=== PATIENT | male | born 1960 | race Caucasian/White ===

== ENCOUNTER → 2016-09-14 | Day surgery (SDC) | payer OTHER ==
[~2016-09-14] VITALS: Ht 177.8 cm; Wt 105.1 kg
[~2016-09-14] MED LIST: *ONDANSETRON 4 MG VIAL PERIprocedural Use ONLY ONE; AMLO5TAB2 PO; ASPI81CH PO; ATOR40TA16 PO; BETH10TA2 PO; BUME1TAB PO; BUPIVACAINE/EPINEPHRINE 0.25% PF 30 ML VIAL ONE; BUPIVACAINE/EPINEPHRINE 0.5% PF 30 ML VIAL ONE; CALC667C PO; CITA20TA4 PO; DO NOT ADM ANY ANTICOAGULANT DRUGS XX PRN; FAMOTIDINE 20 MG/2 ML VIAL ONE; GABA800T PO; HEPARIN SODIUM - SQ 10,000 UNITS/ML VIAL ONE; HYDR-3533 PO; HYDR25TA35 PO; INSULIN HUMAN REGULAR 1,000 UNITS/10 ML VIAL SQ PRN; IPRASOL INH; ISOS20TA PO; LACTATED RINGER'S 1000 ML IV SCH; LORA-373 PO; METO25TA3 PO; METOPROLOL TARTRATE 25 MG TAB PO PRN; MIDAZOLAM HCL 2 MG/2 ML VIAL ONE; MULT-135 PO; NEOSTIGMINE 3 MG/3 ML SYR IV ONE; NOVOINJ6 SQ; NOVORP2 SQ; ONDANSETRON HCL 4 MG/2 ML VIAL IV PUSH ONE; ONDANSETRON HCL 4 MG/2 ML VIAL IV PUSH PRN; PANT40TA3 PO; PROPOFOL 200 MG/20 ML AMP IV ONE; SODIUM CHLORID 0.9% 500 ML IV SCH; VENTAER INH; VITA100036 PO; ZENP1000 PO; ZOFR4TAB PO; ZYRT10CA PO; ceFAZolin 1,000 MG/NS 100 ML IV SCH; fentaNYL CITRATE 250 MCG/5 ML AMP ONE; hydrALAZINE HCL 20 MG/ML VIAL ONE; oxyCODONE/ACETAMINOPHEN 10 MG/325 MG TAB PO PRN; oxyCODONE/ACETAMINOPHEN 5 MG/325 MG TAB ONE
[2016-09-14 09:24] VITALS: BP 163/81; PULSE 66; RESP 20; TEMP 98.2; O2SAT 100
[2016-09-14 09:55] LABS: BASOPHIL % 0.5 % (0.0-2.0); EOSINOPHIL # 0.4 TH/MM3 (0-0.4); EOSINOPHIL % 5.4 % (0.0-4.0); HEMATOCRIT 34.4 % (39.0-51.0); HEMO FLAGS DIFF FINAL; LYMPH % 12.2 % (9.0-44.0); LYMPHOCYTE # 0.8 TH/MM3 (1.0-4.8); MEAN CELL VOLUME 88.8 FL (80.0-100.0); MEAN CORPUSCULAR HEMOGLOBIN 30.8 PG (27.0-34.0); MEAN CORPUSCULAR HGB CONC 34.7 % (32.0-36.0); NEUT % 74.9 % (16.0-70.0); PLATELET COUNT 207 TH/MM3 (150-450); RED BLOOD COUNT 3.87 MIL/MM3 (4.50-5.90); RED CELL DISTRIBUTION WIDTH 15.7 % (11.6-17.2); WHITE BLOOD COUNT 6.6 TH/MM3 (4.0-11.0)
[2016-09-14 10:14] LABS: BICARBONATE 28.3 MEQ/L (21.0-32.0); POTASSIUM 4.2 MEQ/L (3.5-5.1)
[2016-09-14 16:00] VITALS: BP 138/80; PULSE 62; RESP 16; TEMP 97.5; O2SAT 97
--- NOTE | 2016-09-16 06:32 | MP ---
cc: GREGORIO RUEDA M.D. DATE OF SURGERY September 14, 2016 PREOPERATIVE DIAGNOSES 1. Chronic kidney disease. 2. Diffusely strictured left brachiocephalic A-V fistula. POSTOPERATIVE DIAGNOSES 1. Chronic kidney disease. 2. Diffusely strictured left brachiocephalic A-V fistula. OPERATIVE PROCEDURE 1. PTFE interposition revision left brachiocephalic A-V fistula. 2. Laparoscopic-assisted peritoneal dialysis catheter placement. SURGEON Gregorio Rueda MD [employer] BRIGID Pacheco ANESTHESIA General/local. DESCRIPTION OF THE OPERATIVE PROCEDURE With the patient in the supine position and under general anesthesia, the left arm, axilla and abdomen were prepped with Betadine and draped in a sterile fashion. One gram of Ancef was administered intravenously and following a protocol time-out, skin and subcutaneous tissue over the proposed incisional areas within the left arm preemptively infiltrated with 0.5% Marcaine with epinephrine. A curvilinear approximately 3 cm incision was performed directly overlying the arterialized cephalic vein proximal to the brachial artery anastomosis. The arterialized cephalic vein was circumferentially mobilized. As suggested by preoperative color-flow ultrasound, the 3-4 cm segment of cephalic vein immediately proximal to the brachial artery anastomosis was well matured, measured approximately 5 mm and diameter throughout. However, the proximal cephalic vein was diffusely strictured with concentric fibrosis throughout, as far as far proximally as could be mobilized within the incision. Thus salvage of the more proximal fistula by endovascular or patch angioplasty means was not possible. A vertical incision was performed directly overlying the brachial vein distal to the axilla. The vein was circumferentially mobilized. The brachial vein was occluded proximally and distally with Yasargil clips. A vertical 2-cm venotomy was performed along the anterolateral surface. The proximal vein was flushed with heparinized saline. A 6-mm CenterFlex PTFE graft was spatulated on end and anastomosed end-to-side to the venotomy with continuous 6-0 Prolene. The graft was tunneled in a crescent-shaped fashion along the medial aspect of the upper extremity with a tunneling device. The matured arterialized cephalic vein segment was occluded proximally with Yasargil clip, transected and anastomosed end-to-end to the PTFE graft with continuous 6-0 Prolene. The occluding Yasargil clips were removed establishing pulsatile flow within the revised access as confirmed by Doppler signal. Both incisions were closed with two separate deep layers of continuous 4-0 Monocryl and skin reapproximated with continuous subcuticular 5-0 Monocryl. Steri-Strips and sterile dressing applied. Attention was then directed to laparoscopic-assisted peritoneal dialysis catheter placement. The skin and subcutaneous tissue along the left lateral infracostal area was infiltrated with 0.5% Marcaine with epinephrine. A transverse 2-cm incision was performed. The incision was deepened through the anterior rectus sheath. Rectus muscle fibers were . The posterior rectus sheath and peritoneum were elevated and a small peritoneotomy performed through which a 5-mm Surgiport was bluntly advanced into the peritoneal space. The abdomen was insufflated with carbon dioxide. Laparoscopy revealed no significant intraabdominal adhesions or obvious pathology. A separate 2-cm incision was performed immediately to the left and inferior to the umbilicus and deepened through the anterior rectus sheath. An 18-gauge needle was guided obliquely and caudally between the anterior and posterior rectus sheaths and under laparoscopic visualization, punctured through the posterior rectus sheath and peritoneum. A J-wire was advanced into the mid-pelvis. The needle was exchanged for a catheter insertion sheath. A coiled peritoneal dialysis catheter was guided into the mid-pelvis. The internal catheter cuff was placed subjacent to the rectus sheathotomy which was secured around the cuff with interrupted 0-PDS. The catheter was tunneled subcutaneously and exited through a separate stab incision superolaterally. The titanium adapter was applied to the TRAM catheter tip and the catheter flushed with saline. The abdomen was desufflated. The left subcostal rectus incision was secured with continuous 4-0 Monocryl. Both skin incisions were closed with continuous subcuticular 5-0 Monocryl, reinforced with Steri-Strips and covered with sterile gauze. Instrument, needle and sponge count correct x 2. No operative complications. The patient returned to the recovery room in stable condition having tolerated the procedure well. Gregorio Rueda MD JTS/SSB /4:20 PM /6:17 AM
== END | disposition home or self-care (01) ==
LOC: HSDC 08:34
PROVIDERS: ATTEND Surgery Vascular Surgery
DX: T82.858A Stenosis of other vascular prosthetic devices, implants and grafts, initial encounter (principal); I87.1 Compression of vein; I13.0 Hypertensive heart and chronic kidney disease with heart failure and stage 1 through stage 4 chronic kidney disease, or unspecified chronic kidney disease; I50.9 Heart failure, unspecified; E11.40 Type 2 diabetes mellitus with diabetic neuropathy, unspecified; Z79.4 Long term (current) use of insulin
CPT/HCPCS: 01844; 36832; 49324; 80048; 82948; 85025; C1750; C1768; J0360; J0690; J1644; J1815; J2250; J2405; J2710; J3010; J7120

== ENCOUNTER → 2016-10-25 | Day surgery (SDC) | payer OTHER ==
[~2016-10-25] VITALS: Ht 177.8 cm; Wt 104.3 kg
[~2016-10-25] MED LIST changes: +*morphine SULFATE 8 MG/ML PERIprocedure ONLY ONE; +ACETAMINOPHEN/HYDROcodone 325 MG/7.5 MG TAB ONE; +BUPIVACAINE/EPINEPHRINE 0.25% PF 10 ML VIAL ONE; -BUPIVACAINE/EPINEPHRINE 0.25% PF 30 ML VIAL ONE; -DO NOT ADM ANY ANTICOAGULANT DRUGS XX PRN; +HEPARIN SODIUM - IV 10,000 UNITS/10 ML VIAL ONE; -HEPARIN SODIUM - SQ 10,000 UNITS/ML VIAL ONE; +Hemodialysis Vas Acc Cath PRN Heparin 1000 unit/ml Flush IV FLUSH; +Hemodialysis Vas Access Cath PRN NS Lock Flush IVF; +Infusaport/Implanted VAD PRN NS Lock Flush IVF; -NEOSTIGMINE 3 MG/3 ML SYR IV ONE; -ONDANSETRON HCL 4 MG/2 ML VIAL IV PUSH ONE; -ONDANSETRON HCL 4 MG/2 ML VIAL IV PUSH PRN; +SODIUM CHLOR 0.9% 1000 ML INJ 1,000 ML IV ONE; +SODIUM CHLOR 0.9% 250 ML INJ 250 ML ONE; +VANCOMYCIN HCL 1000 MG ON-CALL/NS 250 ML IV SCH; +VANCOMYCIN HCL 1000 MG VIAL ONE; -fentaNYL CITRATE 250 MCG/5 ML AMP ONE; -hydrALAZINE HCL 20 MG/ML VIAL ONE; -oxyCODONE/ACETAMINOPHEN 10 MG/325 MG TAB PO PRN; -oxyCODONE/ACETAMINOPHEN 5 MG/325 MG TAB ONE
[2016-10-25 13:18] VITALS: BP 144/71; PULSE 75; RESP 16; TEMP 98.1; O2SAT 100
[2016-10-25 13:43] LABS: AUTOMATED NEUTROPHIL # 5.8 TH/MM3 (1.8-7.7); BASOPHIL % 0.3 % (0.0-2.0); EOSINOPHIL # 0.2 TH/MM3 (0-0.4); EOSINOPHIL % 2.2 % (0.0-4.0); HEMATOCRIT 32.6 % (39.0-51.0); HEMO FLAGS DIFF FINAL; LYMPH % 11.5 % (9.0-44.0); LYMPHOCYTE # 0.9 TH/MM3 (1.0-4.8); MEAN CELL VOLUME 89.8 FL (80.0-100.0); MEAN CORPUSCULAR HEMOGLOBIN 30.5 PG (27.0-34.0); MONO % 9.4 % (0.0-8.0); NEUT % 76.6 % (16.0-70.0); PLATELET COUNT 186 TH/MM3 (150-450); RED BLOOD COUNT 3.63 MIL/MM3 (4.50-5.90); RED CELL DISTRIBUTION WIDTH 16.8 % (11.6-17.2); WHITE BLOOD COUNT 7.6 TH/MM3 (4.0-11.0)
[2016-10-25 13:57] LABS: BICARBONATE 24.2 MEQ/L (21.0-32.0); POTASSIUM 3.7 MEQ/L (3.5-5.1)
[2016-10-25 17:20] VITALS: BP 121/64; PULSE 68; RESP 16; TEMP 97.6; O2SAT 99
--- NOTE | 2016-10-28 17:15 | MP ---
cc: GREGORIO RUEDA DATE OF SURGERY 10/25/16 PREOPERATIVE DIAGNOSIS Chronic kidney disease with need for permanent peritoneal dialysis access. POSTOPERATIVE DIAGNOSIS Chronic kidney disease with need for permanent peritoneal dialysis access. PROCEDURE Laparoscopic-assisted peritoneal dialysis catheter placement. SURGEON Rodolfo Rueda MD [employer] Donna Caballero CFA ANESTHESIA General/local PROCEDURE IN DETAIL With the patient in the supine position, general endotracheal anesthesia was induced, the abdomen thoroughly prepped with Betadine and draped in a sterile fashion. One gram of Ancef and 1 gram of vancomycin were administered intravenously. Following a protocol time-out, the skin and subcutaneous tissue along the proposed incisional areas is preemptively infiltrated with 0.5% Marcaine with epinephrine. A transverse 2 cm incision was performed along the right medial infracostal region. The incision was deepened through the anterior rectus fascia. Rectus muscle fibers were , posterior rectus sheath and peritoneum elevated and a small sheathotomy/peritoneotomy performed through which a 5 mm Surgiport was bluntly advanced into the peritoneal space. The abdomen was insufflated with carbon dioxide. Laparoscopic visualization of the intraperitoneal space revealed scattered adhesions between visceral and parietal peritoneal surfaces, particularly along the left lateral and pelvic regions, probably related to previous peritoneal dialysis catheter placement/subsequent infection. However, a clear area was apparent along the right paracolic gutter in the right pelvic cul-de-sac. A transverse 2 cm incision was performed immediately lateral and inferior to the umbilicus, deepened through the anterior rectus sheath. An 18 gauge needle was guided obliquely and caudally between the anterior and posterior rectus sheath and, under laparoscopic visualization, punctured through the posterior rectus sheath and guided toward the mid pelvis. A J-wire was advanced into the mid, dependent pelvic cul-de-sac. The needle was exchanged for a catheter insertion sheath. A coiled peritoneal dialysis catheter was introduced through the tear away introducer sheath and the coil positioned within the mid pelvis, deepened at most area. The internal catheter cuff was placed subjacent to the rectus sheathotomy which was secured with interrupted 2-0 PDS. The subcutaneous portion of the catheter was tunneled and exited through a separate stab incision laterally. The catheter was trimmed to appropriate length, the titanium adapter applied to the catheter tip. The catheter was flushed with saline and capped. The abdomen was desufflated. The right subcostal rectus incision was closed with interrupted 2-0 PDS. Both skin incisions were reapproximated with continuous subcuticular 5-0 Monocryl, reinforced with Steri-Strips. The catheter exit site was dressed with gauze and Tegaderm. Instrument, needle, sponge count correct x2. No operative complications. The patient returned to the recovery room in stable condition having tolerated procedure well. MD TRESSA Drake/ /7:41 AM /5:05 PM
== END | disposition home or self-care (01) ==
LOC: HSDC 12:15
PROVIDERS: ATTEND Surgery Vascular Surgery
DX: N18.6 End stage renal disease (principal); I12.0 Hypertensive chronic kidney disease with stage 5 chronic kidney disease or end stage renal disease; J44.9 Chronic obstructive pulmonary disease, unspecified; I73.9 Peripheral vascular disease, unspecified; Z95.1 Presence of aortocoronary bypass graft
CPT/HCPCS: 00790; 49324; 80048; 85025; C1750; J1644; J2250; J2270; J2405; J3010; J3370; J7030; J7050

== ENCOUNTER 2018-01-14 22:37 | Inpatient (IN) | payer OTHER, MEDICARE ==
[~2018-01-14] VITALS: Ht 177.8 cm; Wt 127.8 kg
[~2018-01-14 22:37] MED LIST changes: -*ONDANSETRON 4 MG VIAL PERIprocedural Use ONLY ONE; -*morphine SULFATE 8 MG/ML PERIprocedure ONLY ONE; -ACETAMINOPHEN/HYDROcodone 325 MG/7.5 MG TAB ONE; +ASPI-516 PO; -ASPI81CH PO; -BUPIVACAINE/EPINEPHRINE 0.25% PF 10 ML VIAL ONE; -BUPIVACAINE/EPINEPHRINE 0.5% PF 30 ML VIAL ONE; +CHOL10008 PO; -FAMOTIDINE 20 MG/2 ML VIAL ONE; -HEPARIN SODIUM - IV 10,000 UNITS/10 ML VIAL ONE; -Hemodialysis Vas Acc Cath PRN Heparin 1000 unit/ml Flush IV FLUSH; -Hemodialysis Vas Access Cath PRN NS Lock Flush IVF; -INSULIN HUMAN REGULAR 1,000 UNITS/10 ML VIAL SQ PRN; -Infusaport/Implanted VAD PRN NS Lock Flush IVF; -LACTATED RINGER'S 1000 ML IV SCH; -LORA-373 PO; +LORA0.5T PO; -METOPROLOL TARTRATE 25 MG TAB PO PRN; -MIDAZOLAM HCL 2 MG/2 ML VIAL ONE; -PROPOFOL 200 MG/20 ML AMP IV ONE; -SODIUM CHLOR 0.9% 1000 ML INJ 1,000 ML IV ONE; -SODIUM CHLOR 0.9% 250 ML INJ 250 ML ONE; -SODIUM CHLORID 0.9% 500 ML IV SCH; -VANCOMYCIN HCL 1000 MG ON-CALL/NS 250 ML IV SCH; -VANCOMYCIN HCL 1000 MG VIAL ONE; -VITA100036 PO; -ceFAZolin 1,000 MG/NS 100 ML IV SCH
[2018-01-14 23:16] VITALS: BP 194/84; PULSE 77; RESP 16; TEMP 98.2; O2SAT 98
[2018-01-14] MEDS ORDERED: MORPHINE SULFATE 4 MG/ML INJ IV PUSH ONE (23:30)
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
[2018-01-15] VITALS (12 sets, daily range): BP systolic 104–188; BP diastolic 54–86; PULSE 61–77; RESP 11–22; TEMP 97.4–98.7; O2SAT 93–97
[2018-01-15] MEDS ORDERED: SODIUM CHLORIDE 0.9% FLUSH 10 ML FLUSH IV FLUSH PRN ×2 (00:15→08:30)
[2018-01-15] MEDS ORDERED: ACETAMINOPHEN/HYDROcodone 325 MG/5 MG TAB PO PRN (00:15)
[2018-01-15] MEDS ORDERED: GLUCAGON 1 MG/ML VIAL OTHER PRN (00:15)
[2018-01-15] MEDS ORDERED: LORazepam 0.5 MG TAB PO PRN (00:15)
[2018-01-15] MEDS ORDERED: DEXTROSE 50% IN WATER 50 ML VIAL(D50) IV PUSH PRN (00:15)
[2018-01-15] MEDS ORDERED: CHLORHEXIDINE GLUCONATE 2 % 1 PACK (2 CLOTHS) TOP PRN (00:15)
[2018-01-15] MEDS ORDERED: NURSING INFORMATION XX SCH (00:15)
[2018-01-15] MEDS ORDERED: ONDANSETRON ODT 4 MG TAB PO PRN (00:30)
[2018-01-15] MEDS: MORPHINE SULFATE 4 MG/ML INJ IV PUSH PRN ×7 (01:59→17:16)
[2018-01-15] MEDS: ALBUTEROL SULFATE 90 MCG/ACT HFA 8 GM INHALER INH SCH ×2 (02:05→04:51)
[2018-01-15] MEDS ORDERED: CHLORHEXIDINE GLUCONATE 2 % 1 PACK (2 CLOTHS) TOP SCH (04:00)
[2018-01-15] MEDS ORDERED: hydrALAZINE HCL 25 MG TAB PO SCH (06:00)
[2018-01-15] MEDS ORDERED: BISACODYL 10 MG SUPP RECTAL PRN (07:45)
[2018-01-15] MEDS ORDERED: SENNOSIDES 8.6 MG TAB PO PRN (07:45)
[2018-01-15] MEDS ORDERED: LACTULOSE SYRUP 20 GM/30 ML CUP PO PRN (07:45)
[2018-01-15] MEDS: INSULIN NovoLIN REGULAR SUPPLEMENTAL SCALE SQ SCH ×4 (08:00→21:00)
[2018-01-15] MEDS: MAGNESIUM HYDROXIDE SUSP 30 ML CUP PO SCH ×2 (08:00→20:32)
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
[2018-01-15] MEDS ORDERED: HEPARIN SODIUM - IV 10,000 UNITS/10 ML VIAL XX PRN (08:30)
[2018-01-15] MEDS ORDERED: GABAPENTIN 400 MG CAP PO SCH (09:00)
[2018-01-15] MEDS ORDERED: ISOSORBIDE MONONITRATE 20 MG TAB PO SCH (09:00)
[2018-01-15] MEDS ORDERED: METOPROLOL TARTRATE 25 MG TAB PO SCH (09:00)
[2018-01-15] MEDS ORDERED: CITALOPRAM HYDROBROMIDE 20 MG TAB PO SCH (09:00)
[2018-01-15] MEDS ORDERED: BETHANECHOL CHL 10 MG TAB PO SCH (09:00)
[2018-01-15] MEDS ORDERED: BUMETANIDE 1 MG TAB PO SCH (09:00)
[2018-01-15] MEDS: amLODIPine BESYLATE 5 MG TAB PO SCH (09:13)
[2018-01-15] MEDS: ATORVASTATIN 40 MG TAB PO SCH (09:14)
[2018-01-15] MEDS: DOCUSATE SODIUM 50 MG/SENNA 8.6 MG TAB PO SCH ×2 (09:14→20:33)
[2018-01-15] MEDS: ASPIRIN 81 MG CHEW TAB PO SCH (09:14)
[2018-01-15] MEDS: PANTOPRAZOLE SOD 40 MG DELAYED RELEASE TAB PO SCH (09:14)
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
[2018-01-15] MEDS: ACETAMINOPHEN/HYDROcodone 325 MG/5 MG TAB PO PRN ×3 (10:14→20:33)
[2018-01-15] MEDS: LIPASE/PROTEASE/AMYLASE (12,000/38,000/60,000) CAP PO SCH ×3 (10:14→17:45)
[2018-01-15] MEDS ORDERED: predniSONE 10 MG TAB PO ONE (11:00)
[2018-01-15] MEDS: RESP: ALBUTEROL 2.5 MG/IPRATROPIUM 0.5 MG NEB (SCH) NEB ×3 (11:09→20:10)
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
[2018-01-15] MEDS: CALCIUM ACETATE 667 MG CAP PO SCH ×2 (12:22→17:16)
[2018-01-15 13:08] LABS: AUTOMATED NEUTROPHIL # 10.3 TH/MM3 (1.8-7.7); BASOPHIL % 0.3 % (0.0-2.0); EOSINOPHIL # 0.1 TH/MM3 (0-0.4); EOSINOPHIL % 1.1 % (0.0-4.0); HEMATOCRIT 31.2 % (39.0-51.0); LYMPH % 10.6 % (9.0-44.0); LYMPHOCYTE # 1.4 TH/MM3 (1.0-4.8); MEAN CELL VOLUME 95.4 FL (80.0-100.0); MEAN CORPUSCULAR HEMOGLOBIN 30.7 PG (27.0-34.0); MEAN CORPUSCULAR HGB CONC 32.2 % (32.0-36.0); MEAN PLATELET VOLUME 8.9 FL (7.0-11.0); MONO % 7.6 % (0.0-8.0); NEUT % 80.4 % (16.0-70.0); PLATELET COUNT 199 TH/MM3 (150-450); RED BLOOD COUNT 3.27 MIL/MM3 (4.50-5.90); RED CELL DISTRIBUTION WIDTH 15.7 % (11.6-17.2); WHITE BLOOD COUNT 12.9 TH/MM3 (4.0-11.0)
[2018-01-15] MEDS ORDERED: CHLORHEXIDINE GLUCONATE 2 % 1 PACK (2 CLOTHS)(extra cloths) TOPICAL PRN (13:15)
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
[2018-01-15 15:36] LABS: BICARBONATE 22.2 MEQ/L (21.0-32.0); CALCIUM 7.9 MG/DL (8.5-10.1); CREATININE 5.53 MG/DL (0.60-1.30)
[2018-01-15] MEDS: hydrALAZINE HCL 50 MG TAB PO SCH ×2 (15:47→20:33)
[2018-01-15] MEDS: LISINOPRIL 20 MG TAB PO SCH (17:15)
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
[2018-01-15] MEDS: BUDESONIDE-FORMOTEROL 160/4.5 MCG INHALER INH SCH (20:32)
[2018-01-15] MEDS: CARVEDILOL 12.5 MG TAB PO SCH (20:32)
[2018-01-15] MEDS: ISOSORBIDE MONONITRATE 60 MG CR TAB (IMDUR) PO SCH (20:33)
[2018-01-15] MEDS: MUPIROCIN 2% OINT 1 APPLIC/GM SYR NASAL SCH (20:34)
[2018-01-15] MEDS: RANOLAZINE 500 MG EXTENDED RELEASE TAB PO SCH (21:00)
[2018-01-15 22:00] LABS: TROPONIN I 0.47 NG/ML (0.02-0.05)
[2018-01-16] VITALS (12 sets, daily range): BP systolic 106–150; BP diastolic 58–69; PULSE 58–95; RESP 16–26; TEMP 97.8–98.7; O2SAT 93–100
[2018-01-16] MEDS: RESP: ALBUTEROL 2.5 MG/IPRATROPIUM 0.5 MG NEB (SCH) NEB ×7 (01:06→23:22)
[2018-01-16] MEDS: ACETAMINOPHEN/HYDROcodone 325 MG/5 MG TAB PO PRN ×5 (03:49→21:25)
[2018-01-16] MEDS: CHLORHEXIDINE GLUCONATE 2 % 1 PACK (2 CLOTHS)(taper/protocol) TOPICAL SCH (03:51)
--- NOTE | 2018-01-16 04:06 | RADRPT ---
EXAM DATE: 01/16/2018 3:45 AM EDT AGE/SEX: 57 years / Male INDICATIONS: Shortness of breath. Chest pain. CLINICAL DATA: This is the patient's subsequent encounter. Patient reports that signs and symptoms h ave been present for 3 days and indicates a pain score of 6/10. MEDICAL/SURGICAL HISTORY: Hypertension. Cardiovascular disease. Diabetes mellitus type II. R enal failure, chronic. Congestive heart failure. CABG. [place] [facility] [place]. . FINDINGS: Single chest some shows mild scarring left lung base. Sternal wires and clips are CABG. Small lung vo lumes. Upper lungs are clear. CONCLUSION: Scar versus atelectasis left lung base. Right lung is clear. Small lung volumes. Electronically signed by: Ollie Fraga MD 01/16/2018 4:05 AM EDT
[2018-01-16 04:37] LABS: AUTOMATED NEUTROPHIL # 9.4 TH/MM3 (1.8-7.7); BASOPHIL % 0.2 % (0.0-2.0); EOSINOPHIL % 0.3 % (0.0-4.0); HEMATOCRIT 29.8 % (39.0-51.0); HEMOGLOBIN 9.6 GM/DL (13.0-17.0); LYMPH % 6.1 % (9.0-44.0); LYMPHOCYTE # 0.6 TH/MM3 (1.0-4.8); MEAN CELL VOLUME 95.6 FL (80.0-100.0); MEAN CORPUSCULAR HEMOGLOBIN 30.8 PG (27.0-34.0); MEAN CORPUSCULAR HGB CONC 32.2 % (32.0-36.0); MEAN PLATELET VOLUME 8.7 FL (7.0-11.0); MONO % 4.1 % (0.0-8.0); MONOCYTE # 0.4 TH/MM3 (0-0.9); NEUT % 89.3 % (16.0-70.0); PLATELET COUNT 193 TH/MM3 (150-450); RED BLOOD COUNT 3.12 MIL/MM3 (4.50-5.90); RED CELL DISTRIBUTION WIDTH 15.8 % (11.6-17.2); WHITE BLOOD COUNT 10.5 TH/MM3 (4.0-11.0)
[2018-01-16 05:01] LABS: ALBUMIN 2.6 GM/DL (3.4-5.0); AST (GOT) 32 U/L (15-37); BICARBONATE 24.7 MEQ/L (21.0-32.0); BLOOD UREA NITROGEN 84 MG/DL (7-18); CALCIUM 7.5 MG/DL (8.5-10.1); CHLORIDE 106 MEQ/L (98-107); GLOMERULAR FILTRATION RATE 11 ML/MIN (>89); GLUCOSE,RANDOM 236 MG/DL (74-106); SODIUM (NA) 141 MEQ/L (136-145)
[2018-01-16 05:06] LABS: ALKALINE PHOSPHATASE 72 U/L (45-117); ALT (GPT) 48 U/L (12-78); PHOSPHORUS 6.6 MG/DL (2.5-4.9); TOTAL BILIRUBIN ADULT 0.2 MG/DL (0.2-1.0); TOTAL PROTEIN 5.9 GM/DL (6.4-8.2)
[2018-01-16] MEDS: hydrALAZINE HCL 50 MG TAB PO SCH ×3 (05:23→21:26)
[2018-01-16] MEDS: amLODIPine BESYLATE 5 MG TAB PO SCH (08:12)
[2018-01-16] MEDS: LIPASE/PROTEASE/AMYLASE (12,000/38,000/60,000) CAP PO SCH ×3 (08:12→17:17)
[2018-01-16] MEDS: SERTRALINE HCL 50 MG TAB PO SCH (08:12)
[2018-01-16] MEDS: ASPIRIN 81 MG CHEW TAB PO SCH (08:12)
[2018-01-16] MEDS: DOCUSATE SODIUM 50 MG/SENNA 8.6 MG TAB PO SCH ×2 (08:12→21:26)
[2018-01-16] MEDS: LISINOPRIL 20 MG TAB PO SCH (08:13)
[2018-01-16] MEDS: predniSONE 10 MG TAB PO SCH (08:13)
[2018-01-16] MEDS: RANOLAZINE 500 MG EXTENDED RELEASE TAB PO SCH ×2 (08:13→21:17)
[2018-01-16] MEDS: PANTOPRAZOLE SOD 40 MG DELAYED RELEASE TAB PO SCH (08:13)
[2018-01-16] MEDS: CALCIUM ACETATE 667 MG CAP PO SCH ×3 (08:13→17:17)
[2018-01-16] MEDS: ATORVASTATIN 40 MG TAB PO SCH (08:13)
[2018-01-16] MEDS: MAGNESIUM HYDROXIDE SUSP 30 ML CUP PO SCH ×2 (08:13→20:00)
[2018-01-16] MEDS: CARVEDILOL 12.5 MG TAB PO SCH ×2 (08:13→21:16)
[2018-01-16] MEDS: MUPIROCIN 2% OINT 1 APPLIC/GM SYR NASAL SCH ×2 (08:14→21:16)
[2018-01-16] MEDS: BUDESONIDE-FORMOTEROL 160/4.5 MCG INHALER INH SCH ×2 (08:14→21:00)
[2018-01-16] MEDS: INSULIN NovoLIN REGULAR SUPPLEMENTAL SCALE SQ SCH ×4 (08:14→21:00)
[2018-01-16] MEDS: ISOSORBIDE MONONITRATE 60 MG CR TAB (IMDUR) PO SCH ×2 (08:19→21:17)
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
[2018-01-16] MEDS ORDERED: PERI PO (09:13)
[2018-01-16] MEDS ORDERED: MAGN30S PO (09:13)
[2018-01-16] MEDS ORDERED: INFLUENZA VIRUS VACCINE (QUADRIVALENT) 0.5 ML SYR IM ONE (10:00)
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
[2018-01-16] MEDS ORDERED: EPOETIN ALFA 20,000 UNITS/ML VIAL SQ ONE (10:15)
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
--- NOTE | 2018-01-16 22:57 | EKG ---
Date Performed: 01/16/2018 Time Performed: 06:35:38 PTAGE: 57 years EKG: Sinus rhythm Inferior infarct - age undetermined Possible anterior infarct - age undetermined Lateral T wave nick ges may be due to myocardial ischemia Abnormal ECG NO PREVIOUS TRACING DOCTOR: Jose Oscar Interpretating Date/Time 01/16/2018 22:52:47
--- NOTE | 2018-01-16 23:12 | EKG ---
Date Performed: 01/15/2018 Time Performed: 14:40:36 PTAGE: 57 years EKG: Sinus rhythm INFERIOR MYOCARDIAL INFARCTION , PROBABLY OLD MODERATE T-WAVE ABNORMALITY, CONSIDER LATERAL ISCHEMIA ABNORMAL ECG PREVIOUS TRACING : 07/11/2016 13.30 DOCTOR: Jose Oscar Interpretating Date/Time 01/16/2018 23:01:23
[2018-01-17] VITALS (14 sets, daily range): BP systolic 108–167; BP diastolic 56–78; PULSE 62–100; RESP 16–24; TEMP 97.9–98.9; O2SAT 94–100
[2018-01-17] MEDS: RESP: ALBUTEROL 2.5 MG/IPRATROPIUM 0.5 MG NEB (SCH) NEB ×5 (03:35→20:01)
[2018-01-17] MEDS: CHLORHEXIDINE GLUCONATE 2 % 1 PACK (2 CLOTHS)(taper/protocol) TOPICAL SCH (03:42)
[2018-01-17] MEDS: hydrALAZINE HCL 50 MG TAB PO SCH ×3 (03:42→21:02)
[2018-01-17 03:53] LABS: AUTOMATED NEUTROPHIL # 10.7 TH/MM3 (1.8-7.7); BASOPHIL % 0.1 % (0.0-2.0); EOSINOPHIL # 0.2 TH/MM3 (0-0.4); EOSINOPHIL % 1.4 % (0.0-4.0); HEMATOCRIT 27.9 % (39.0-51.0); HEMOGLOBIN 9.4 GM/DL (13.0-17.0); LYMPH % 5.6 % (9.0-44.0); LYMPHOCYTE # 0.7 TH/MM3 (1.0-4.8); MEAN CELL VOLUME 94.5 FL (80.0-100.0); MEAN CORPUSCULAR HEMOGLOBIN 31.7 PG (27.0-34.0); MEAN CORPUSCULAR HGB CONC 33.6 % (32.0-36.0); MEAN PLATELET VOLUME 9.1 FL (7.0-11.0); MONO % 4.4 % (0.0-8.0); MONOCYTE # 0.5 TH/MM3 (0-0.9); NEUT % 88.5 % (16.0-70.0); PLATELET COUNT 186 TH/MM3 (150-450); RED BLOOD COUNT 2.95 MIL/MM3 (4.50-5.90); RED CELL DISTRIBUTION WIDTH 15.9 % (11.6-17.2)
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
[2018-01-17 04:12] LABS: ALBUMIN 2.7 GM/DL (3.4-5.0); ALT (GPT) 45 U/L (12-78); AST (GOT) 25 U/L (15-37); BICARBONATE 24.4 MEQ/L (21.0-32.0); BLOOD UREA NITROGEN 83 MG/DL (7-18); CALCIUM 7.6 MG/DL (8.5-10.1); CHLORIDE 103 MEQ/L (98-107); CREATININE 5.87 MG/DL (0.60-1.30); GLOMERULAR FILTRATION RATE 10 ML/MIN (>89); GLUCOSE,RANDOM 161 MG/DL (74-106); SODIUM (NA) 138 MEQ/L (136-145)
[2018-01-17 04:14] LABS: ALKALINE PHOSPHATASE 76 U/L (45-117); TOTAL BILIRUBIN ADULT 0.3 MG/DL (0.2-1.0)
[2018-01-17] MEDS: ACETAMINOPHEN/HYDROcodone 325 MG/5 MG TAB PO PRN ×4 (06:53→21:05)
[2018-01-17] MEDS: MAGNESIUM HYDROXIDE SUSP 30 ML CUP PO SCH ×2 (08:00→21:02)
[2018-01-17] MEDS: PANTOPRAZOLE SOD 40 MG DELAYED RELEASE TAB PO SCH (08:40)
[2018-01-17] MEDS: ASPIRIN 81 MG CHEW TAB PO SCH (08:40)
[2018-01-17] MEDS: RANOLAZINE 500 MG EXTENDED RELEASE TAB PO SCH ×2 (08:40→21:02)
[2018-01-17] MEDS: CARVEDILOL 12.5 MG TAB PO SCH ×2 (08:40→21:02)
[2018-01-17] MEDS: ISOSORBIDE MONONITRATE 60 MG CR TAB (IMDUR) PO SCH ×2 (08:40→21:06)
[2018-01-17] MEDS: LIPASE/PROTEASE/AMYLASE (12,000/38,000/60,000) CAP PO SCH ×3 (08:40→17:04)
[2018-01-17] MEDS: ATORVASTATIN 40 MG TAB PO SCH (08:40)
[2018-01-17] MEDS: amLODIPine BESYLATE 5 MG TAB PO SCH (08:40)
[2018-01-17] MEDS: predniSONE 10 MG TAB PO SCH (08:40)
[2018-01-17] MEDS: SERTRALINE HCL 50 MG TAB PO SCH (08:40)
[2018-01-17] MEDS: CALCIUM ACETATE 667 MG CAP PO SCH ×3 (08:41→17:04)
[2018-01-17] MEDS: MUPIROCIN 2% OINT 1 APPLIC/GM SYR NASAL SCH ×2 (08:41→21:04)
[2018-01-17] MEDS: INSULIN NovoLIN REGULAR SUPPLEMENTAL SCALE SQ SCH ×4 (08:41→21:03)
[2018-01-17] MEDS: DOCUSATE SODIUM 50 MG/SENNA 8.6 MG TAB PO SCH ×2 (08:41→21:02)
[2018-01-17] MEDS: LISINOPRIL 20 MG TAB PO SCH (08:41)
[2018-01-17] MEDS: BUDESONIDE-FORMOTEROL 160/4.5 MCG INHALER INH SCH ×2 (08:41→21:03)
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
--- NOTE | 2018-01-17 19:55 | ECHRPT ---
Indication: hypertension CONCLUSIONS The left ventricular systolic function is normal with an estimated ejection fraction in the range of 55-60%. Mild concentric left ventricular hypertrophy. Normal left ventricular size. The right ventricular size is normal. Mild mitral valve regurgitation. There is trace tricuspid valve regurgitation. BP: / HR: Rhythm: MEASUREMENTS (Male / Female) Normal Values Technical Quality: 2D ECHO LV Diastolic Diameter PLAX 5.5 cm 4.2 - 5.9 / 3.9 - 5.3 cm LV Systolic Diameter PLAX 4.1 cm IVS Diastolic Thickness 1.4 cm 0.6 - 1.0 / 0.6 - 0.9 cm LVPW Diastolic Thickness 1.4 cm 0.6 - 1.0 / 0.6 - 0.9 cm LV Relative Wall Thickness 0.5 RV Internal Dim ED PLAX 2.4 cm M-MODE Aortic Root Diameter MM 3.6 cm LA Systolic Diameter MM 4.1 cm LA Ao Ratio MM 1.1 AV Cusp Separation MM 2.2 cm DOPPLER Mitral E Point Velocity 152.0 cm/s Mitral A Point Velocity 81.9 cm/s Mitral E to A Ratio 1.9 LV E' Lateral Velocity 7.1 cm/s Mitral E to LV E' Lateral Ratio 21.3 FINDINGS LEFT VENTRICLE The left ventricular systolic function is normal with an estimated ejection fraction in the range of 55-60%. Mild concentric left ventricular hypertrophy. Normal left ventricular size. RIGHT VENTRICLE The right ventricular size is normal. LEFT ATRIUM The left atrial size is normal. RIGHT ATRIUM The right atrial size is normal. ATRIAL SEPTUM Normal atrial septal thickness without atrial level shunting by limited color doppler interrogation. AORTA The aortic root and proximal ascending aorta are not well visualized. MITRAL VALVE Mild mitral valve regurgitation. Structurally normal mitral valve. AORTIC VALVE Trileaflet aortic valve. No aortic valve stenosis or regurgitation. TRICUSPID VALVE There is trace tricuspid valve regurgitation. PULMONARY VALVE Trivial pulmonary valve regurgitation. VESSELS The inferior vena cava was not well visualized. PERICARDIUM No pericardial effusion. Ranjit Dow MD, FACC (Electronically Signed) Final Date:17 January 2018 19:54
[2018-01-18] VITALS (7 sets, daily range): BP systolic 117–129; BP diastolic 55–62; PULSE 64–68; RESP 23–24; TEMP 97.5–97.9; O2SAT 95–99
[2018-01-18] MEDS: RESP: ALBUTEROL 2.5 MG/IPRATROPIUM 0.5 MG NEB (SCH) NEB ×4 (00:24→11:30)
[2018-01-18] MEDS: CHLORHEXIDINE GLUCONATE 2 % 1 PACK (2 CLOTHS)(taper/protocol) TOPICAL SCH (04:49)
[2018-01-18] MEDS: hydrALAZINE HCL 50 MG TAB PO SCH (04:53)
[2018-01-18] MEDS: ACETAMINOPHEN/HYDROcodone 325 MG/5 MG TAB PO PRN ×2 (04:59→09:46)
[2018-01-18 06:27] LABS: AUTOMATED NEUTROPHIL # 9.2 TH/MM3 (1.8-7.7); BASOPHIL % 0.3 % (0.0-2.0); EOSINOPHIL # 0.2 TH/MM3 (0-0.4); HEMATOCRIT 28.5 % (39.0-51.0); HEMOGLOBIN 9.4 GM/DL (13.0-17.0); LYMPH % 7.1 % (9.0-44.0); LYMPHOCYTE # 0.8 TH/MM3 (1.0-4.8); MEAN CELL VOLUME 94.1 FL (80.0-100.0); MEAN PLATELET VOLUME 8.9 FL (7.0-11.0); MONO % 5.3 % (0.0-8.0); MONOCYTE # 0.6 TH/MM3 (0-0.9); NEUT % 85.3 % (16.0-70.0); PLATELET COUNT 177 TH/MM3 (150-450); RED BLOOD COUNT 3.03 MIL/MM3 (4.50-5.90); RED CELL DISTRIBUTION WIDTH 15.6 % (11.6-17.2); WHITE BLOOD COUNT 10.8 TH/MM3 (4.0-11.0)
[2018-01-18 06:54] LABS: ALBUMIN 2.7 GM/DL (3.4-5.0); ALT (GPT) 46 U/L (12-78); AST (GOT) 21 U/L (15-37); BICARBONATE 24.7 MEQ/L (21.0-32.0); BLOOD UREA NITROGEN 84 MG/DL (7-18); CALCIUM 7.5 MG/DL (8.5-10.1); CHLORIDE 99 MEQ/L (98-107); CREATININE 6.08 MG/DL (0.60-1.30); GLOMERULAR FILTRATION RATE 10 ML/MIN (>89); GLUCOSE,RANDOM 168 MG/DL (74-106); SODIUM (NA) 137 MEQ/L (136-145)
[2018-01-18 06:57] LABS: ALKALINE PHOSPHATASE 84 U/L (45-117); TOTAL BILIRUBIN ADULT 0.3 MG/DL (0.2-1.0)
[2018-01-18] MEDS: SERTRALINE HCL 50 MG TAB PO SCH (07:39)
[2018-01-18] MEDS: MAGNESIUM HYDROXIDE SUSP 30 ML CUP PO SCH (07:39)
[2018-01-18] MEDS: ATORVASTATIN 40 MG TAB PO SCH (07:39)
[2018-01-18] MEDS: CALCIUM ACETATE 667 MG CAP PO SCH (07:39)
[2018-01-18] MEDS: DOCUSATE SODIUM 50 MG/SENNA 8.6 MG TAB PO SCH (07:40)
[2018-01-18] MEDS: predniSONE 10 MG TAB PO SCH (07:40)
[2018-01-18] MEDS: amLODIPine BESYLATE 5 MG TAB PO SCH (07:40)
[2018-01-18] MEDS: PANTOPRAZOLE SOD 40 MG DELAYED RELEASE TAB PO SCH (07:40)
[2018-01-18] MEDS: ISOSORBIDE MONONITRATE 60 MG CR TAB (IMDUR) PO SCH (07:40)
[2018-01-18] MEDS: RANOLAZINE 500 MG EXTENDED RELEASE TAB PO SCH (07:40)
[2018-01-18] MEDS: CARVEDILOL 12.5 MG TAB PO SCH (07:40)
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
[2018-01-18] MEDS: MUPIROCIN 2% OINT 1 APPLIC/GM SYR NASAL SCH (07:41)
[2018-01-18] MEDS: ASPIRIN 81 MG CHEW TAB PO SCH (07:41)
[2018-01-18] MEDS: INSULIN NovoLIN REGULAR SUPPLEMENTAL SCALE SQ SCH (07:41)
[2018-01-18] MEDS: BUDESONIDE-FORMOTEROL 160/4.5 MCG INHALER INH SCH (07:41)
[2018-01-18] MEDS: LISINOPRIL 20 MG TAB PO SCH (07:41)
[2018-01-18] MEDS: LIPASE/PROTEASE/AMYLASE (12,000/38,000/60,000) CAP PO SCH (09:30)
[2018-01-18] MEDS ORDERED: HYDR-3516 PO (10:54)
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
== END 2018-01-18 12:44 | disposition home or self-care (01) | DRG 314 ==
LOC: NEPE 22:37 → NEDA 01-15 00:13 → N03B 01-15 01:14
PROVIDERS: ADMIT Surgery; ATTEND Surgery
DX: S26.91XA Contusion of heart, unspecified with or without hemopericardium, initial encounter (principal); N18.6 End stage renal disease; I13.2 Hypertensive heart and chronic kidney disease with heart failure and with stage 5 chronic kidney disease, or end stage renal disease; R18.8 Other ascites; E11.22 Type 2 diabetes mellitus with diabetic chronic kidney disease; J44.1 Chronic obstructive pulmonary disease with (acute) exacerbation; Z86.74 Personal history of sudden cardiac arrest; K86.1 Other chronic pancreatitis; Z68.41 Body mass index [BMI] 40.0-44.9, adult; S22.32XA Fracture of one rib, left side, initial encounter for closed fracture; K31.84 Gastroparesis; E11.43 Type 2 diabetes mellitus with diabetic autonomic (poly)neuropathy; I50.9 Heart failure, unspecified; I25.10 Atherosclerotic heart disease of native coronary artery without angina pectoris; I25.2 Old myocardial infarction; E78.5 Hyperlipidemia, unspecified; E66.9 Obesity, unspecified; G47.33 Obstructive sleep apnea (adult) (pediatric); D63.1 Anemia in chronic kidney disease; E83.39 Other disorders of phosphorus metabolism; E87.5 Hyperkalemia; M15.9 Polyosteoarthritis, unspecified; F32.9 Major depressive disorder, single episode, unspecified; F41.9 Anxiety disorder, unspecified; V43.52XA Car driver injured in collision with other type car in traffic accident, initial encounter; Z88.1 Allergy status to other antibiotic agents; Y92.410 Unspecified street and highway as the place of occurrence of the external cause; Z79.4 Long term (current) use of insulin; Z91.19 Patient's noncompliance with other medical treatment and regimen; Z95.1 Presence of aortocoronary bypass graft; Z95.820 Peripheral vascular angioplasty status with implants and grafts; Z99.2 Dependence on renal dialysis
CPT/HCPCS: 71045; 74176; 80048; 80053; 82550; 82552; 82948; 84100; 84484; 85025; 85610; 85730; 87641; 90935; 93005; 93306; 94150; 94640; 94664; 96374; J2270; J7512; Q4081